=== PATIENT | female | born 1960 | race Caucasian/White ===

== ENCOUNTER 2017-08-22 05:10 | Day surgery (SDC) | payer OTHER ==
[2017-08-13 09:46] VITALS: BMI 36.8
[2017-08-22] MEDS ORDERED: MIDAZOLAM HCL 2 MG/2 ML SINGLE DOSE VIAL ONE (12:55)
[2017-08-22] MEDS ORDERED: PROPOFOL 20 ML ONE (13:00)
[2017-08-22] MEDS ORDERED: IBUPROFEN 400 MG TABLET (FP) PO PRN (13:34)
[2017-08-22] MEDS ORDERED: ACETAMINOPHEN 325 MG TABLET (FP) PO PRN (13:34)
[2017-08-22] MEDS ORDERED: oxyCODONE HCL 5 MG TABLET PO PRN (14:26)
[2017-08-22] MEDS ORDERED: ONDANSETRON 4 MG/2 ML VIAL IVPUSH PRN (14:26)
[2017-08-22] MEDS ORDERED: LACTATED RINGERS SOLUTION 1,000 ML IV SCH (14:30)
[2017-08-22 14:50] VITALS: TEMP 98
--- NOTE | 2017-08-22 14:52 | OP ---
DATE OF OPERATION: 08/22/2017 PREOPERATIVE DIAGNOSIS: Postmenopausal bleeding. POSTOPERATIVE DIAGNOSIS: Postmenopausal bleeding. SURGEON: Rufino Draper MD ANESTHESIA: General: Kaitlynn Berkowitz MD OPERATION: Hysteroscopy, dilatation and curettage. DESCRIPTION OF PROCEDURE: While patient was prepped and draped under general anesthesia and in lithotomy position, examination revealed vaginal spotting, cervix closed, corpus top normal, adnexa negative. During the procedure, weighted speculum applied in the vagina, cervix grasped with tenaculum, cervical canal was dilated up to number [id number]. Uterine cavity was 8 cm. At this time, hysteroscopy was done with the help of saline media, and entire endocervix and endometrium were evaluated. There was polyp, and after hysteroscopy was finished, first endocervical was done and then endometrial curetting was done and polyp removed. For endocervical, a small amount of tissue removed; and endometrial, moderate amount of tissue was removed. Estimated blood loss was 20 mL. Patient tolerated procedure, was sent to recovery room in good condition. Kylee [id number]
[2017-08-22 15:03] VITALS: BP 119/70; PULSE 65
--- NOTE | 2017-08-24 13:14 | PATH ---
Surgical Pathology Report Patient Name: AD LYNCH [facility]. Rec. #: [id number] /Age/Gender: 1960 (Age: 57) / F Account: [id number] Location: [facility] Taken: 08/22/2017 Received: 08/23/2017 Reported: 08/24/2017 Physicians: Jaz Draper M.D. Specimen(s) Received A: ENDOCERVICAL CURETTINGS B: ENDOMETRIAL POLYP Clinical History Postmenopausal bleeding Final Diagnosis A. ENDOCERVICAL CURETTINGS, DILATION AND CURETTAGE: FRAGMENTS OF LOWER UTERINE SEGMENT AND BENIGN CERVICAL TISSUE. B. ENDOMETRIAL CURETTINGS AND ENDOMETRIAL POLYP, DILATION AND CURETTAGE: FRAGMENTS OF ENDOMETRIAL POLYP AND BENIGN CERVICAL TISSUE. Electronically Signed Chica Prabhakar M.D. Gross Description A. Received in formalin labeled "endocervical curettings," is a 0.9 x 0.8 x 0.2 cm aggregate of gonzáles-brown soft tissue fragments. The formalin is filtered and the specimen is entirely submitted in one cassette. B. Received in formalin labeled "endometrial and endometrial polyp," is a 1.0 x 0.9 x 0.3 cm gonzáles, polypoid portion of soft tissue admixed with a 1.5 x 1.0 x 0.3 cm aggregate of gonzáles-brown soft tissue fragments. The formalin is filtered and the specimen is entirely submitted in one cassette. /08/23/201708/23/2017
== END 2017-08-22 16:00 | disposition home or self-care (01) ==
LOC: JASU-SURG 05:10
PROVIDERS: ATTEND Obstetrics & Gynecology
PROC: 0UDB8ZX Extraction of Endometrium, Via Natural or Artificial Opening Endoscopic, Diagnostic (ICD-10-PCS; principal; 2017-08-22 13:04)
DX: N95.0 Postmenopausal bleeding (principal)
CPT/HCPCS: 86850; 86900; 86901; 88305-TC; 94760

== ENCOUNTER 2019-03-02 17:34 | Emergency (ER) | payer OTHER ==
[2019-03-02 17:37] VITALS: BMI 32.4
[2019-03-02] MEDS ORDERED: MAG HYDROX/AL HYDROX/SIMETH 30 ML UNIT-DOSE CUP PO ONE (18:08)
[2019-03-02] MEDS ORDERED: LIDOCAINE VISCOUS 2% ORAL/TOP 20 ML UNIT-DOSE CUP MM ONE (18:08)
--- NOTE | 2019-03-02 18:22 | PDOC ---
History of Present Illness - General History Source: Patient Exam Limitations: No Limitations - History of Present Illness Initial Comments: 03/02/19 18:16 Patient is a 58-year-old female with history of thyroid problem, arthritis, here with complaint of pain to the throat since this evening 1 hour DRIFTMAN. Patient states she was cooking some soup and did not notice that there was a piece of bone in the soup which she swallowed and then had pain in the throat. States she had sensation of it being stuck higher up but now she has pain lower down with swallowing. She has been able to tolerate her saliva. Denies nausea , vomiting, chest pain, SOB. PMD: Dr. Cruz PMHX: As above PSOCHX: neg cig, neg drug, neg etoh ALL: NKDA GENERAL/CONSTITUTIONAL: [No fever or chills. No weakness. No weight change.] HEAD, EYES, EARS, NOSE AND THROAT: [No change in vision. No ear pain or discharge. No sore throat.] CARDIOVASCULAR: [No chest pain or shortness of breath.] RESPIRATORY: [No cough, wheezing, or hemoptysis.] GASTROINTESTINAL: [No nausea, vomiting, diarrhea or constipation. No rectal bleeding.] GENITOURINARY: [No dysuria, frequency, or change in urination.] MUSCULOSKELETAL: [No joint or muscle swelling or pain. No neck or back pain.] SKIN AND BREASTS: [No rash or easy bruising.] NEUROLOGIC: [No headache, vertigo, loss of consciousness, or loss of sensation.] PSYCHIATRIC: [No depression or anxiety.] ENDOCRINE: [No increased thirst. No abnormal weight change.] HEMATOLOGIC/LYMPHATIC: [No anemia, easy bleeding, or history of blood clots.] ALLERGIC/IMMUNOLOGIC: [No hives or skin allergy. No latex allergy.] GENERAL: [The patient is awake, alert, and fully oriented, in no acute distress. ] HEAD: [Normal with no signs of trauma.] EYES: [Pupils equal, round and reactive to light, extraocular movements intact, sclera anicteric, conjunctiva clear.] ENT: [Ears normal, nares patent, oropharynx clear without exudates, no FB, no bleeding. Moist mucous membranes.] NECK: [Normal range of motion, supple without lymphadenopathy, JVD, or masses.] LUNGS: [Breath sounds equal, clear to auscultation bilaterally. No wheezes, and no crackles.] HEART: [Regular rate and rhythm, normal S1 and S2 without murmur, rub.] ABDOMEN: [Soft, nontender, normoactive bowel sounds. No guarding, no rebound. No masses.] EXTREMITIES: [Normal range of motion, no edema. No clubbing or cyanosis. No cords, erythema, or tenderness.] NEUROLOGICAL: [Cranial nerves II through XII grossly intact. Normal speech, normal gait.] PSYCH: [Normal mood, normal affect.] SKIN: [Warm, Dry, normal turgor, no rashes or lesions noted.] <Will Edge - Last Filed: 03/03/19 01:55> <Maite Fitzpatrick - Last Filed: 03/04/19 12:35> - General Chief Complaint: Foreign Body (FB) Stated Complaint: CHICKEN BONE STUCK IN THROAT Past History - Past Medical History CVA: No COPD: No Dementia: No GI Disorders: No Disorders: No HTN: No Liver Disease: No Seizures: No Thyroid Disease: No - Surgical History Neurologic Surgery: Yes (LAMINECTOMY) - Psycho Social/Smoking Cessation Hx Smoking History: Never smoked Have you smoked in the past 12 months: No Hx Alcohol Use: No Drug/Substance Use Hx: No Substance Use Type: None <Will Edge - Last Filed: 03/03/19 01:55> <Maite Fitzpatrick - Last Filed: 03/04/19 12:35> - Past Medical History Allergies/Adverse Reactions: Allergies Allergy/AdvReac Type Severity Reaction Status Date / Time No Known Allergies Allergy Verified 03/02/19 17:37 Home Medications: Ambulatory Orders NK [No Known Home Medication] 03/02/19 *Physical Exam - Vital Signs Last Vital Signs Temp Pulse Resp BP Pulse Ox 98 F 77 18 156/79 99 03/02/19 17:35 03/02/19 17:35 03/02/19 17:35 03/02/19 17:35 03/02/19 17:35 <Will Edge - Last Filed: 03/03/19 01:55> - Vital Signs Last Vital Signs Temp Pulse Resp BP Pulse Ox 98 F 97 H 18 130/75 97 03/03/19 03:25 03/03/19 03:25 03/03/19 03:25 03/03/19 03:25 03/02/19 19:35 <Maite Fitzpatrick - Last Filed: 03/04/19 12:35> ED Treatment Course - RADIOLOGY Radiology Studies Ordered: Category Date Time Status NECK SOFT TISSUE [RAD] Stat Radiology 03/02/19 18:06 Ordered <Will Edge - Last Filed: 03/03/19 01:55> - LABORATORY CBC & Chemistry Diagram: 03/03/19 02:10 03/03/19 02:10 - ADDITIONAL ORDERS Additional order review: 03/03/19 02:10 RBC 4.90 MCV 93.2 MCHC 33.3 RDW 13.3 MPV 8.5 Neutrophils % 67.6 Lymphocytes % 21.4 Monocytes % 7.3 Eosinophils % 2.7 Basophils % 1.0 - Medications Given in the ED: ED Medications Discontinued Medications Generic Name Dose Route Start Last Admin Trade Name Dewayne PRN Reason Stop Dose Admin Acetaminophen 1,000 mg 03/03/19 02:04 03/03/19 02:31 Ofirmev Injection - IVPB 03/03/19 02:05 1,000 mg ONCE ONE Administration Al Hydroxide/Mg Hydroxide 30 ml 03/02/19 18:08 03/02/19 18:47 Mylanta Oral Suspension - PO 03/02/19 18:09 30 ml ONCE ONE Administration Lidocaine HCl 10 ml 03/02/19 18:08 03/02/19 18:47 Xylocaine 2% Viscous Oral - MM 03/02/19 18:09 10 ml ONCE ONE Administration <Maite Fitzpatrick - Last Filed: 03/04/19 12:35> Medical Decision Making - Medical Decision Making 03/02/19 18:16 Patient is a 58-year-old female with history of thyroid problem, arthritis, here with complaint of pain to the throat since this evening 1 hour DRIFTMAN. Patient states she was cooking some soup and did not notice that there was a piece of bone in the soup which she swallowed and then had pain in the throat. States she had sensation of it being stuck higher up but now she has pain lower down. She has been able to tolerate her saliva. Denies nausea, vomiting, chest pain, SOB. FB and or FB sensation xray soft tissue neck maalox/lidocaine solution reassess. Pain meds offered but refused initially. 03/02/19 19:03 Patient was given a solution of Maalox and lidocaine states now her tongue feels numb but she still has pain on swallowing from the throat midline to the epigastrium. Will have Dr. Fitzpatrick come to see the patient. 03/02/19 19:[address] Fitzpatrick recommend Noncon CT soft tissue neck. We will do chest x-ray to look for free air 03/03/19 01:49 Patient Full Name: SYED DUONG Patient Accession No: [id number] Patient : 1960 Reason for Exam: neck pain r/o fb Referring Physician: Patient Name: AD LYNCH THIS IS A PRELIMINARY REPORT FROM [facility] DATE OF SERVICE: 2019-03-02 22:02:21 IMAGES: [id number] EXAM: SOFT TISSUE NECK CT W/O CONTR HISTORY: 58-Year-Old Female With Neck Pain Assess For Orally Ingested Chicken Bone Foreign Body. COMPARISON: None. FINDINGS: Lack of intravenous contrast limits this exam. Radiodense 2.7 x 1.8 x 0.3 cm chicken bone fragment radiodense calcified foreign body lodged in the lower cervical and upper thoracic esophagus with partial high-grade obstruction of the esophagus with mild to moderate abnormal surrounding wall thickening of the esophagus consistent with acute esophagitis may be associated with laceration of the inner wall of the esophagus with no evidence of a full-thickness esophageal wall tear on axial image 75-86 and sagittal image 26-31. No free air. Calcified coronary artery arteriosclerosis in the left anterior descending coronary artery. Moderate degenerative disc disease and moderate degenerative joint disease of the uncovertebral joints and facets in the middle and lower cervical levels. Moderate multilevel spinal canal narrowing and moderate to severe multilevel neural foraminal narrowing in the middle and lower cervical levels. Fatty atrophy of the parotid glands. IMPRESSION: Radiodense 2.7 x 1.8 x 0.3 cm chicken bone fragment radiodense calcified foreign body lodged in the lower cervical and upper thoracic esophagus with partial high-grade obstruction of the esophagus with mild to moderate abnormal surrounding wall thickening of the esophagus consistent with acute esophagitis may be associated with laceration of the inner wall of the esophagus with no evidence of a full-thickness esophageal wall tear. Calcified coronary artery arteriosclerosis in the left anterior descending coronary artery. Moderate degenerative disc disease and moderate degenerative joint disease of the uncovertebral joints and facets in the middle and lower cervical levels. Moderate multilevel spinal canal narrowing and moderate to severe multilevel neural foraminal narrowing in the middle and lower cervical levels. If clinically indicated follow-up outpatient MRI cervical spine may be needed to evaluate for cord compression and cord edema. A verbal report of the abnormal results were discussed with Dr. Celeste Kovacs PAC by Dr. Monge at 12:11 AM EDT March 03, 2019. This CT exam was performed using one or more of the following dose reduction techniques: automated exposure control, adjustment of the mA and/or kV according to patient size, use of iterative reconstruction technique. One or more of the following dose reduction techniques were used: automated exposure control, adjustment of the mA and/or kV according to patient size, use of iterative reconstructive technique. THIS DOCUMENT HAS BEEN ELECTRONICALLY SIGNED Melvin Monge MD 03/03/2019 00:23 EST M.D. Please call [facility] [employer] [phone] ([phone]) with questions. INTERPRETING RADIOLOGIST: Melvin Monge MD Electronically Signed: Mar 03, 2019 12:24AM EST Case was discussed with Dr. Mejia of GI recommended that we call CT surgery for assistance since the patient had to be in the operating room. If there was no CT surgery vocational technical education teacher and we should transfer the patient. Dr. Ashton, cardiothoracic called however, there is no CT surgery in that group. Patient requesting to be transferred to [facility].. Transfer center called, Dr. Solares will accept patient for transfer. Patient requesting something for pain will give Tylenol IV. <Will Edge - Last Filed: 03/03/19 01:55> - Medical Decision Making agree with midlevel provider. I had evaluated the patient at bedside, able to christiano secretions, +globus sensation. no clear FB seen on Xray, will do CT soft tissue to eval for FB/obstructed chicken bone. no respiratory distress vitals reviewed, wnl CT on review + FB, chicken bone in esophagus. will need GI, called and rec'd CT surg transferred to [facility] for specialty care 03/04/19 12:34 <Maite Fitzpatrick - Last Filed: 03/04/19 12:35> Discharge - Discharge Information Problems reviewed: Yes - Transfer to Acute Care Facility Receiving Facility Name: [facility] <Will Edge - Last Filed: 03/03/19 01:55> <Maite Fitzpatrick - Last Filed: 03/04/19 12:35> - Discharge Information Clinical Impression/Diagnosis: Foreign body in esophagus Qualifiers: Encounter type: initial encounter Qualified Code(s): T18.108A - Unspecified foreign body in esophagus causing other injury, initial encounter Condition: Stable Disposition: TRANSFER ACUTE CARE/OTHER HOSP
[2019-03-02] MEDS ORDERED: MAG HYDROX/AL HYDROX/SIMETH 30 ML UNIT-DOSE CUP ONE (18:46)
[2019-03-02] MEDS ORDERED: LIDOCAINE VISCOUS 2% ORAL/TOP 20 ML UNIT-DOSE CUP ONE (18:46)
[2019-03-03] MEDS ORDERED: ACETAMINOPHEN 1000 MG/100 ML VIAL (NON FORMULARY) IVPB ONE (02:04)
[2019-03-03 02:30] LABS: EOS % 2.7 % (0-4.5); HEMATOCRIT 45.7 % (32.4-45.2); HEMOGLOBIN 15.2 GM/dL (10.7-15.3); LYMPH % 21.4 % (8-40); MCH 31.1 pg (25.7-33.7); MCHC 33.3 g/dl (32.0-36.0); MEAN CELL VOLUME 93.2 fl (80-96); MEAN PLT VOLUME 8.5 fl (7.5-11.1); MONO % 7.3 % (3.8-10.2); NEUT % 67.6 % (42.8-82.8); PLATELET COUNT 233 K/MM3 (134-434); RDW 13.3 % (11.6-15.6); WHITE BLOOD COUNT 5.7 K/mm3 (4.0-10.0)
[2019-03-03 03:04] LABS: ALBUMIN 4.3 g/dl (3.4-5.0); BILIRUBIN,TOTAL 0.5 mg/dL (0.2-1); BLOOD UREA NITROGEN 23.1 mg/dL (7-18); CALCIUM 9.7 mg/dL (8.5-10.1); CREATININE 0.9 mg/dL (0.55-1.3); POTASSIUM 4.1 mmol/L (3.5-5.1); TOT PROT 7.2 g/dl (6.4-8.2)
[2019-03-03 07:25] VITALS: BP 130/75; PULSE 97; TEMP 98
== END 2019-03-03 03:40 | disposition short-term general hospital (02) ==
LOC: JER 17:34
PROC: 3E033NZ Introduction of Analgesics, Hypnotics, Sedatives into Peripheral Vein, Percutaneous Approach (ICD-10-PCS; principal; 2019-03-02)
DX: T18.128A Food in esophagus causing other injury, initial encounter (principal); X58.XXXA Exposure to other specified factors, initial encounter; Y92.010 Kitchen of single-family (private) house as the place of occurrence of the external cause; Y99.8 Other external cause status; Y93.G3 Activity, cooking and baking; E07.9 Disorder of thyroid, unspecified; M12.9 Arthropathy, unspecified
CPT/HCPCS: 36415; 70360-TC-FY; 70490-TC; 71046-TC-FY; 80053; 85025; 99284-25; J0131